=== PATIENT | female | born 1960 | race Caucasian/White ===

== ENCOUNTER 2021-08-20 08:35 | Emergency (ER) | payer BC ==
[2021-08-20 08:44] VITALS: BP 154/80; PULSE 70; TEMP 98; BMI 23.4
[2021-08-20 09:38] LABS: EPI CELLS 1 /uL (0-25.1); HYALINE CASTS 2 /uL (0-3.1); URINE APPEARANCE CLOUDY; URINE BACTERIA 20 /uL (0-1359); URINE BILIRUBIN NEGATIVE (NEGATIVE); URINE COLOR ORANGE; URINE GLUCOSE (UA) NEGATIVE (NEGATIVE); URINE KETONE NEGATIVE (NEGATIVE); URINE LEUK ESTERASE 2+ (NEGATIVE); URINE NITRITE NEGATIVE (NEGATIVE); URINE PROTEIN NEGATIVE (NEGATIVE); URINE RBC 3858 /uL (0-23.9); URINE UROBILINOGEN 0.2 mg/dL (0.2-1.0); URINE WBC 759 /uL (0-25.8)
== END 2021-08-20 09:52 | disposition home or self-care (01) ==
LOC: JER 08:35 → JERFT 08:35
DX: N39.0 Urinary tract infection, site not specified (principal)
CPT/HCPCS: 81003; 87086; 99283-25

== ENCOUNTER 2022-09-15 09:07 | Emergency (ER) | payer BC ==
[2022-09-15 09:18] VITALS: BP 156/79; PULSE 85; RESP 20; TEMP 98.3; BMI 24.6
[2022-09-15 09:57] LABS: EPI CELLS 2 /uL (0-25.1); HYALINE CASTS 0 /uL (0-3.1); URINE APPEARANCE CLEAR; URINE BACTERIA 9 /uL (0-1359); URINE BILIRUBIN NEGATIVE (NEGATIVE); URINE COLOR YELLOW; URINE GLUCOSE (UA) NEGATIVE (NEGATIVE); URINE KETONE NEGATIVE (NEGATIVE); URINE LEUK ESTERASE 1+ (NEGATIVE); URINE NITRITE NEGATIVE (NEGATIVE); URINE PROTEIN NEGATIVE (NEGATIVE); URINE RBC 4 /uL (0-23.9); URINE UROBILINOGEN 0.2 mg/dL (0.2-1.0); URINE WBC 132 /uL (0-25.8)
== END 2022-09-15 10:37 | disposition home or self-care (01) ==
LOC: JER 09:07
DX: N30.00 Acute cystitis without hematuria (principal); J02.9 Acute pharyngitis, unspecified
CPT/HCPCS: 0241U-QW; 81003; 87086; 99283-25

== ENCOUNTER 2022-10-31 17:17 | Emergency (ER) | payer BC ==
[2022-10-31 17:47] VITALS: BP 142/71; PULSE 80; RESP 18; TEMP 98.2; BMI 21.4
[2022-10-31 19:14] LABS: EPI CELLS 4 /uL (0-25.1); HYALINE CASTS 0 /uL (0-3.1); PH,URINE 5.5 (5.0-8.0); URINE APPEARANCE CLEAR; URINE BACTERIA 11 /uL (0-1359); URINE BILIRUBIN NEGATIVE (NEGATIVE); URINE COLOR YELLOW; URINE GLUCOSE (UA) NEGATIVE (NEGATIVE); URINE KETONE NEGATIVE (NEGATIVE); URINE LEUK ESTERASE 1+ (NEGATIVE); URINE NITRITE NEGATIVE (NEGATIVE); URINE PROTEIN NEGATIVE (NEGATIVE); URINE RBC 6 /uL (0-23.9); URINE UROBILINOGEN 0.2 mg/dL (0.2-1.0); URINE WBC 362 /uL (0-25.8)
[2022-10-31] MEDS ORDERED: NITROFURANTOIN MACROCRYSTAL 50 MG CAPSULE (FP) PO ONE (19:30)
== END 2022-10-31 20:35 | disposition home or self-care (01) ==
LOC: JERFT 17:17 → JER 17:17 → JERFT 20:35
DX: R30.0 Dysuria (principal)
CPT/HCPCS: 81003; 87086; 99283-25

== ENCOUNTER 2023-12-04 10:15 | Emergency (ER) | payer OTHER, BC ==
[2023-12-04 10:25] VITALS: BP 138/74; PULSE 77; RESP 17; TEMP 97.9; BMI 22.4
[2023-12-04 11:31] LABS: EPI CELLS 3 /uL (0-25.1); HYALINE CASTS 0 /uL (0-3.1); URINE APPEARANCE CLEAR; URINE BACTERIA 7 /uL (0-1359); URINE BILIRUBIN NEGATIVE (NEGATIVE); URINE COLOR YELLOW; URINE GLUCOSE (UA) NEGATIVE (NEGATIVE); URINE KETONE NEGATIVE (NEGATIVE); URINE LEUK ESTERASE 2+ (NEGATIVE); URINE NITRITE NEGATIVE (NEGATIVE); URINE PROTEIN NEGATIVE (NEGATIVE); URINE RBC 48 /uL (0-23.9); URINE UROBILINOGEN 0.2 mg/dL (0.2-1.0); URINE WBC 350 /uL (0-25.8)
[2023-12-04] MEDS: SULFAMETHOXAZOLE/TRIMETHOPRIM 800MG/160MG D.S. TABLET PO ONE (13:12)
[2023-12-04] MEDS: PHENAZOPYRIDINE HCL 100 MG TABLET (FP) PO ONE (13:12)
[2023-12-04] MEDS ORDERED: PHENAZOPYRIDINE HCL 100 MG TABLET (FP) ONE (13:13)
[2023-12-04] MEDS ORDERED: SULFAMETHOXAZOLE/TRIMETHOPRIM 800MG/160MG D.S. TABLET ONE (13:13)
== END 2023-12-04 13:18 | disposition home or self-care (01) ==
LOC: JERFT 10:15
DX: R35.0 Frequency of micturition (principal); R30.9 Painful micturition, unspecified; R39.15 Urgency of urination; N39.0 Urinary tract infection, site not specified; R30.0 Dysuria
CPT/HCPCS: 81003; 87086; 99283-25

== ENCOUNTER 2025-02-24 09:12 | Emergency (ER) | payer OTHER, BC ==
[2025-02-24 09:18] VITALS: BP 145/71; PULSE 71; RESP 20; TEMP 98; BMI 21.1
[2025-02-24 09:44] LABS: EPI CELLS 4 /uL (0-25.1); HYALINE CASTS 0 /uL (0-3.1); URINE APPEARANCE CLEAR; URINE BACTERIA 655 /uL (0-1359); URINE BILIRUBIN NEGATIVE (NEGATIVE); URINE COLOR YELLOW; URINE GLUCOSE (UA) NEGATIVE (NEGATIVE); URINE KETONE NEGATIVE (NEGATIVE); URINE LEUK ESTERASE 1+ (NEGATIVE); URINE NITRITE NEGATIVE (NEGATIVE); URINE PROTEIN NEGATIVE (NEGATIVE); URINE WBC 92 /uL (0-25.8)
[2025-02-24 09:46] LABS: URINE RBC 18.7 /uL (0-23.9)
[2025-02-24] MEDS ORDERED: CEPHALEXIN MONOHYDRATE 500 MG CAPSULE (UD) ONE (10:14)
[2025-02-24] MEDS: CEPHALEXIN MONOHYDRATE 500 MG CAPSULE (UD) PO ONE (10:16)
== END 2025-02-24 10:22 | disposition home or self-care (01) ==
LOC: JERFT 09:12
DX: N39.0 Urinary tract infection, site not specified (principal); R30.0 Dysuria
CPT/HCPCS: 81003; 87086; 87186; 99283-25